=== PATIENT | female | born 1995 | race Caucasian/White ===

== ENCOUNTER 2017-01-07 18:01 | Emergency (ER) | payer MEDICAID ==
[2017-01-07 18:03] VITALS: BP 143/89; PULSE 94; RESP 15; TEMP 98.2; O2SAT 99
[2017-01-07] MEDS ORDERED: SODIUM CHLOR 0.9% 1000 ML INJ 1,000 ML IV SCH (18:29)
[2017-01-07] MEDS ORDERED: SODIUM CHLORIDE 0.9% FLUSH 10 ML FLUSH IV FLUSH PRN (18:30)
[2017-01-07] MEDS ORDERED: ONDANSETRON HCL 4 MG/2 ML VIAL IVP ONE (18:30)
--- NOTE | 2017-01-07 18:36 | PD ---
HPI Chief Complaint: GI Complaint Time Seen by Provider: 18:11 Travel History International Travel<30 days: No Contact w/Intl Traveler<30days: No Traveled to known affect area: No History of Present Illness HPI 21yo F with no PMH presents to the ED with c/o generalized abdominal pain that is intermittent for a few days along with NBNB vomiting and nausea. Pt found out she was 3 days ago. Also with 1 week of white vaginal discharge. Denies any fever, chest pain, sob, dysuria, hematuria, vaginal bleeding, focal weakness or numbness. LMP is 11/10/16 so pt should be 8weeks 2 days. PFSH Past Medical History Medical History: Denies Significant Hx ?: LMP: NOVEMBER 2016 Past Surgical History Surgical History: No Previous Surgery Social History Alcohol Use: No Tobacco Use: No Substance Use: No Allergies-Medications (Allergen,Severity, Reaction): Coded Allergies: No Known Allergies (Unverified , 01/07/17) Reported Meds & Prescriptions Reported Meds & Active Scripts Active Tylenol (Acetaminophen) 325 Mg Tab 650 Mg PO Q6H PRN Metronidazole 500 Mg Tab 500 Mg PO BID 7 Days Review of Systems Except as stated in HPI: all other systems reviewed are Neg Physical Exam Narrative GENERAL: 21yo F not in distress. SKIN: Focused skin assessment warm/dry. HEAD: Atraumatic. Normocephalic. CARDIOVASCULAR: Regular rate and rhythm. No murmur appreciated. RESPIRATORY: No accessory muscle use. Clear to auscultation. Breath sounds equal bilaterally. GASTROINTESTINAL: Abdomen soft, non-tender, nondistended. No rebound tenderness or guarding. PELVIC: MUSCULOSKELETAL: No obvious deformities. No clubbing. No cyanosis. No edema. NEUROLOGICAL: Awake and alert. No obvious cranial nerve deficits. Motor grossly within normal limits. Normal speech. PSYCHIATRIC: Appropriate mood and affect; insight and judgment normal. Data Data Last Documented VS Vital Signs Date Time Temp Pulse Resp B/P Pulse Ox O2 Delivery O2 Flow Rate FiO2 01/07/17 19:52 16 99 Room Air 01/07/17 18:03 98.2 94 143/89 Orders Ed Urine Pregnancytest Poc (01/07/17 18:11) Urinalysis - C+S If Indicated (01/07/17 18:11) Beta Hcg (Quant/Titer) (01/07/17 18:29) Complete Blood Count With Diff (01/07/17 18:29) Comprehensive Metabolic Panel (01/07/17 18:29) Lipase (01/07/17 18:29) Prothrombin Time / Inr (Pt) (01/07/17 18:29) Act Partial Throm Time (Ptt) (01/07/17 18:29) Iv Access Insert/Monitor (01/07/17 18:29) Ecg Monitoring (01/07/17 18:29) Oximetry (01/07/17 18:29) Ondansetron Inj (Zofran Inj) (01/07/17 18:30) Sodium Chlor 0.9% 1000 Ml Inj (Ns 1000 M (01/07/17 18:29) Sodium Chloride 0.9% Flush (Ns Flush) (01/07/17 18:30) Ed Poc Ultrasound (01/07/17 ) Gc And Chlamydia Pcr (01/07/17 18:39) Wet Prep Profile (01/07/17 18:39) Acetaminophen (Tylenol) (01/07/17 19:15) Metronidazole (Flagyl) (01/07/17 19:30) Type And Screen (01/07/17 19:26) Labs Laboratory Tests Test 01/07/17 01/07/17 01/07/17 01/07/17 18:25 18:40 18:45 19:35 Urine Color YELLOW Urine Turbidity CLEAR Urine pH 6.5 Urine Specific [place] 1.020 Urine Protein NEG mg/dL Urine Glucose (UA) NEG mg/dL Urine Ketones NEG mg/dL Urine Occult Blood MOD Urine Nitrite NEG Urine Bilirubin NEG Urine Urobilinogen LESS THAN 2.0 MG/DL Urine Leukocyte Esterase NEG Urine RBC 3 /hpf Urine WBC 1 /hpf Urine Squamous Epithelial 2 /hpf Cells Urine Mucus FEW /lpf Microscopic Urinalysis Comment CULT NOT INDICATED Clue Cells (Wet Prep) PRESENT Vaginal Trichomonas (Wet Prep) NONE SEEN Vaginal Yeast (Wet Prep) NONE SEEN White Blood Count 17.3 TH/MM3 Red Blood Count 3.93 MIL/MM3 Hemoglobin 11.6 GM/DL Hematocrit 35.9 % Mean Corpuscular Volume 91.3 FL Mean Corpuscular Hemoglobin 29.6 PG Mean Corpuscular Hemoglobin 32.4 % Concent Red Cell Distribution Width 12.7 % Platelet Count 245 TH/MM3 Mean Platelet Volume 9.6 FL Neutrophils (%) (Auto) 73.6 % Lymphocytes (%) (Auto) 19.7 % Monocytes (%) (Auto) 6.2 % Eosinophils (%) (Auto) 0.3 % Basophils (%) (Auto) 0.2 % Neutrophils # (Auto) 12.7 TH/MM3 Lymphocytes # (Auto) 3.4 TH/MM3 Monocytes # (Auto) 1.1 TH/MM3 Eosinophils # (Auto) 0.1 TH/MM3 Basophils # (Auto) 0.0 TH/MM3 CBC Comment DIFF FINAL Differential Comment Prothrombin Time 11.0 SEC Prothromb Time International 1.0 RATIO Ratio Activated Partial 28.9 SEC Thromboplast Time Sodium Level 137 MEQ/L Potassium Level 3.8 MEQ/L Chloride Level 104 MEQ/L Carbon Dioxide Level 24.5 MEQ/L Anion Gap 9 MEQ/L Blood Urea Nitrogen 5 MG/DL Creatinine 0.67 MG/DL Estimat Glomerular Filtration 113 ML/MIN Rate Random Glucose 84 MG/DL Calcium Level 8.7 MG/DL Total Bilirubin 0.1 MG/DL Aspartate Amino Transf 11 U/L (AST/SGOT) Alanine Aminotransferase 19 U/L (ALT/SGPT) Alkaline Phosphatase 78 U/L Total Protein 6.8 GM/DL Albumin 3.5 GM/DL Lipase 125 U/L Human Chorionic Gonadotropin, 35426 MIU/ML Quant Blood Type A POSITIVE [facility] Medical Decision Making Medical Screen Exam Complete: Yes Emergency Medical Condition: Yes Differential Diagnosis Early vs. ectopic vs. UTI vs. bacteria vaginosis vs. vaginal candidiasis vs. GC/chlamydia Narrative Course 21yo F who just found out she was here with vaginal discharge and intermittent abdominal pain. Pt has no abdominal pain on my exam. Pt given acetaminophen, zofran and NS IVF and reevaluated at bedside. States she has no abdominal pain. Pt is no longer nauseous. Tolerating PO. Pelvic exam was remarkable for thick white discharge. No CMT or adnexal tenderness. No vaginal bleeding. Labs reviewed, leukocytosis of 17.3. bHCG [id number]. UA showed moderate occult blood. No leukocyte or nitrite. Positive clue cells. Pt given metronidazole 500mg PO. Bedside US showed IUP with +FHR. Blood type A+. Return precautions given. Procedures Procedure Narrative Emergency Department Pelvic ultrasound was performed with patient consent. The curvilinear probe was used in the transverse and sagittal views within the suprapubic region revealing single intrauterine . heart rate was 160bpm. Diagnosis Primary Impression: Bacterial vaginosis Patient Instructions: General Instructions Departure Forms: Tests/Procedures Additional Instructions: Please follow up with an OBGYN in 1-2 days. Return to the ED if symptoms worsen. Med/Other Pt SpecificInfo: Prescription(s) given Scripts Acetaminophen (Tylenol)325 Mg Hkg298 Mg PO Q6H PRN (PAIN SCALE 1 TO 4) #20 TAB Ref 0 Prov:Beth Avila DO 01/07/17 Metronidazole 500 Mg [id number] Mg PO BID 7 Days Ref 0 Prov:Beth Avila DO 01/07/17 Beth Avila DO Jan 07, 2017 18:36
[2017-01-07 18:41] LABS: BLOOD, URINE MOD (NEG); COMMENT (UR) CULT NOT INDICATED; CULTURE IF INDICATED CULT NOT INDICATED; GLUCOSE,URINE NEG (NEG); KETONE, URINE NEG (NEG); MUCUS URINE FEW /lpf (OCC); NITRITE,URINE NEG (NEG); PH, URINE 6.5 (5.0-8.5); SQUAMOUS EPITHELIAL CELL URINE 2 /hpf (0-5); URINE COLOR YELLOW (YELLW/STRAW)
[2017-01-07 19:11] LABS: AUTOMATED NEUTROPHIL # 12.7 TH/MM3 (1.8-7.7); BASOPHIL % 0.2 % (0.0-2.0); EOSINOPHIL # 0.1 TH/MM3 (0-0.4); EOSINOPHIL % 0.3 % (0.0-4.0); HEMATOCRIT 35.9 % (35.0-46.0); HEMO FLAGS DIFF FINAL; LYMPH % 19.7 % (9.0-44.0); LYMPHOCYTE # 3.4 TH/MM3 (1.0-4.8); MEAN CELL VOLUME 91.3 FL (80.0-100.0); MEAN CORPUSCULAR HEMOGLOBIN 29.6 PG (27.0-34.0); MEAN CORPUSCULAR HGB CONC 32.4 % (32.0-36.0); MONO % 6.2 % (0.0-8.0); NEUT % 73.6 % (16.0-70.0); PLATELET COUNT 245 TH/MM3 (150-450); RED BLOOD COUNT 3.93 MIL/MM3 (4.00-5.30); RED CELL DISTRIBUTION WIDTH 12.7 % (11.6-17.2); WHITE BLOOD COUNT 17.3 TH/MM3 (4.0-11.0)
[2017-01-07] MEDS ORDERED: ACETAMINOPHEN 325 MG TAB PO ONE (19:15)
[2017-01-07 19:23] LABS: APTT (PATIENT) 28.9 SEC (24.3-30.1)
[2017-01-07] MEDS ORDERED: metroNIDAZOLE 500 MG TAB PO ONE (19:30)
[2017-01-07 19:42] LABS: ALT (GPT) 19 U/L (9-42); ANION GAP 9 MEQ/L (5-15); AST (GOT) 11 U/L (16-38); BICARBONATE 24.5 MEQ/L (21.0-32.0); BLOOD UREA NITROGEN 5 MG/DL (7-18); CHLORIDE 104 MEQ/L (98-107); GLOMERULAR FILTRATION RATE 113 ML/MIN (>89); POTASSIUM 3.8 MEQ/L (3.5-5.1); SODIUM (NA) 137 MEQ/L (136-145)
[2017-01-07 19:52] VITALS: RESP 16; O2SAT 99
[2017-01-07 19:59] LABS: ALKALINE PHOSPHATASE 78 U/L (45-117); BETA HCG QUANT 78362 MIU/ML (0-5); TOTAL BILIRUBIN ADULT 0.1 MG/DL (0.2-1.0)
[2017-01-07] MEDS ORDERED: METR500T10 PO (20:08)
[2017-01-07] MEDS ORDERED: TYLE325T PO (20:08)
[2017-01-07 21:59] LABS: CHLAMYDIA PCR NOT DETECTED (NOT DETECT); NEISSERIA PCR NOT DETECTED (NOT DETECT)
== END 2017-01-07 21:06 | disposition home or self-care (01) ==
LOC: NEPD 18:01
DX: O23.599 Infection of other part of genital tract in pregnancy, unspecified trimester (principal); N76.0 Acute vaginitis; B96.89 Other specified bacterial agents as the cause of diseases classified elsewhere; Z3A.00 Weeks of gestation of pregnancy not specified
CPT/HCPCS: 80053; 81001; 83690; 84702; 84703; 85025; 85610; 85730; 86850; 86900; 86901; 87210; 87491; 87591; 96361; 96374; 99285; J2405; J7030

== ENCOUNTER 2017-04-16 09:20 | Emergency (ER) | payer MEDICAID ==
[~2017-04-16] VITALS: Ht 162.6 cm; Wt 95.0 kg
[~2017-04-16 09:20] MED LIST: BUTO1CRE PV; METR500T10 PO; PREN1CAP7 PO
[2017-04-16 09:23] VITALS: BP 130/85; PULSE 102; RESP 20; TEMP 98; O2SAT 99
--- NOTE | 2017-04-16 09:36 | PD ---
HPI Chief Complaint: Pain: Acute or Chronic Time Seen by Provider: 09:35 Travel History International Travel<30 days: No Contact w/Intl Traveler<30days: No Traveled to known affect area: No History of Present Illness HPI 22-year-old female, approximately 5 months , presents emergency Department with complaint of left arm pain that started yesterday afternoon. Denies injury. Says she remembers moving a mattress the other day. Pain is specifically to the left upper trapezius muscle area and to the ulnar aspect of the elbow. Says the pain radiates up and down her arm. Reports numbness and tingling to the lower aspect of her arm. Denies loss of sensation or decreased range of motion to the affected extremity. Denies chest pain, shortness of breath. Denies abdominal pain, abdominal cramping, vaginal bleeding. Denies fever, vomiting. Has not taken any medications or tried any treatments to alleviate her symptoms. Symptoms are mild in severity. Pain is aggravated when she tries to sleep. No known relieving factors. Has no other medical complaints. No known allergies. No other modifying factors or associated signs and symptoms. PFSH Past Medical History Medical History: Denies Significant Hx ?: LMP: 11/10/16 Past Surgical History Surgical History: No Previous Surgery Social History Alcohol Use: No Tobacco Use: No Substance Use: No Allergies-Medications (Allergen,Severity, Reaction): Coded Allergies: No Known Allergies (Unverified , 04/16/17) Reported Meds & Prescriptions Reported Meds & Active Scripts Active No Active Prescriptions or Reported Medications Review of Systems Except as stated in HPI: all other systems reviewed are Neg Physical Exam Narrative GENERAL: Well-nourished, well-developed female patient, in no acute distress; afebrile, nontoxic-appearing SKIN: Warm and dry. HEAD: Atraumatic. Normocephalic. EYES: Pupils equal and round. No scleral icterus. No injection or drainage. ENT: Mucosa pink and moist. Airway patent. NECK: Trachea midline. CARDIOVASCULAR: Regular rate and rhythm. No murmur appreciated. RESPIRATORY: No accessory muscle use. Breath sounds clear and equal bilaterally. No retractions or tachypnea. GASTROINTESTINAL: Rounded. 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 Reproducible tenderness to the left upper trapezius muscle and muscle feels tense. Full range of motion of the left shoulder. No obvious deformities. No clubbing. No cyanosis. No edema. NEUROLOGICAL: Awake and alert. Oriented 3. No obvious cranial nerve deficits. Motor grossly within normal limits. Normal speech. PSYCHIATRIC: Appropriate mood and affect; insight and judgment normal. Data Data Last Documented VS Vital Signs Date Time Temp Pulse Resp B/P (MAP) Pulse Ox O2 Delivery O2 Flow Rate FiO2 04/16/17 09:43 04/16/17 09:41 90 04/16/17 09:23 98.0 20 99 Room Air Orders Orders Acetaminophen (Tylenol) (04/16/17 09:45) MDM Medical Decision Making Medical Screen Exam Complete: Yes Emergency Medical Condition: Yes Medical Record Reviewed: Yes Differential Diagnosis Ulnar Nerve entrapment, muscle strain, muscle spasm, arm pain or arm strain or muscle strain. Narrative Course 22-year-old female with left arm pain. Suspecting ulnar nerve entrapment, arm strain, muscle strain. Patient is approximately 5 months . Denies abdominal pain, cramping, vaginal bleeding. Denies injury. May have pulled arm while moving a mattress the other day. Left upper to me supplemented with 2 + radial pulse and sensory intact with full strength and range of motion. Tylenol administered in the ER. Instructed patient to continue to take Tylenol as needed for pain. Instructed patient to follow up with primary care provider. Patient verbalizes understanding and agreement with treatment plan. Patient is medically cleared and stable for discharge. Discussed reasons to return to the emergency department. Patient agrees with treatment plan. The patients vital signs are stable and the patient is stable for outpatient follow- up and treatment. Patient discharged home, stable and in no acute distress. Diagnosis Primary Impression: Left arm pain Referrals: Primary Care Physician Patient Instructions: Arm Pain (ED), General Instructions Additional Instructions: Tylenol as directed and as needed for pain Avoid aggravating activity Increase activity as tolerated Follow-up with primary care provider Return to the emergency department immediately if worse worsening of symptoms Med/Other Pt SpecificInfo: No Meds Exist/No RX given Scripts No Active Prescriptions or Reported Meds Disposition: DISCHARGE HOME Condition: Stable Maya GaldamezP Apr 16, 2017 09:36
[2017-04-16 09:41] VITALS: PULSE 90
[2017-04-16] MEDS ORDERED: ACETAMINOPHEN 325 MG TAB PO ONE (09:45)
[2017-04-26] MEDS ORDERED: METR500T10 PO (10:58)
[2017-04-26] MEDS ORDERED: PREN1CAP7 PO (10:58)
== END 2017-04-16 09:52 | disposition home or self-care (01) ==
LOC: NEPD 09:20
DX: M79.602 Pain in left arm (principal); Z33.1 Pregnant state, incidental; Z3A.20 20 weeks gestation of pregnancy
CPT/HCPCS: 99282

== ENCOUNTER → 2017-05-18 | Outpatient (CLI) | payer MEDICAID ==
[~2017-05-18] MED LIST changes: -BUTO1CRE PV
== END ==
LOC: HPND 09:01
PROVIDERS: ATTEND Obstetrics & Gynecology
DX: O35.0XX0 Maternal care for (suspected) central nervous system malformation in fetus, not applicable or unspecified (principal); O99.212 Obesity complicating pregnancy, second trimester; E66.9 Obesity, unspecified; Z68.34 Body mass index [BMI] 34.0-34.9, adult
CPT/HCPCS: 76811

== ENCOUNTER → 2017-07-11 | Outpatient (CLI) | payer MEDICAID ==
[~2017-07-11] MED LIST changes: +AMOX500C PO; -METR500T10 PO
== END ==
LOC: HPND 08:02
PROVIDERS: ATTEND Obstetrics & Gynecology
DX: O35.1XX0 Maternal care for (suspected) chromosomal abnormality in fetus, not applicable or unspecified (principal); O99.213 Obesity complicating pregnancy, third trimester
CPT/HCPCS: 76816

== ENCOUNTER 2017-08-23 21:26 | Inpatient (IN) | payer MEDICAID ==
[~2017-08-23] VITALS: Ht 165.1 cm; Wt 118.2 kg
[~2017-08-23 21:26] MED LIST changes: -AMOX500C PO
[2017-08-23] MEDS ORDERED: LACTATED RINGER'S 1000 ML INJ 1,000 ML IV PRN (22:08)
--- NOTE | 2017-08-23 22:08 | HHI.HP ---
HPI Chief Complaint IOL Date Seen: Aug 23, 2017 Time Seen: 22:00 Travel History International Travel<30 Days: No Contact w/Intl Traveler<30Days: No Known Affected Area: No History of Present Illness HPI Ms. Mcrae is a 22-year-old G1 at 40 weeks and 6 days presenting for induction of labor. [facility] by [facility]. Patient states that she has not had a gush of fluid, is not feeling contractions, has not noticed any changed in the amount of baby movements (roughly every hour or so), no vaginal bleeding. Patient is GBS positive and reports receiving antibiotics for this at 36-37 weeks of . Otherwise she has had no complications during this . She failed her 1 hour glucose tolerance test but passed a 3 hour test. 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 Obstetric History Obstetric History G1 No complications during GBS positive Followed by [facility] In office ultrasound at 27 weeks was questionable for choroid plexus cyst, OB diagnostic ultrasounds following that were negative as well as karyotype for any trisomies were also negative Past Surgical History Surgical History: No Previous Surgery Family History Family History: Negative Social History Narrative Social History Lives at home with mom and sister No pets No tobacco alcohol or drug use Allergies-Medications (Allergen,Severity, Reaction): Coded Allergies: No Known Allergies (Unverified Adverse Reaction, Unknown, 08/18/17) Home Meds Active Scripts W/O Vit A W/ Fe Fumar (Citranatal Treadwell) 27-1-260 Mg Cap, 1 CAP PO DAILY for Nutritional Supplement, #30 CAP 3 Refills Prov:Verna Bauman CNM [place] 04/26/17 Review of Systems Except as stated in HPI: all other systems reviewed are Neg Physical Exam Narrative GENERAL: Well-nourished, well-developed patient. SKIN: Warm and dry. HEAD: Normocephalic and atraumatic. EYES: No scleral icterus. No injection or drainage. ENT: No nasal drainage noted. Mucous membranes pink. Airway patent. NECK: Supple, trachea midline. No JVD. CARDIOVASCULAR: Regular rate and rhythm without murmurs, gallops, or rubs. RESPIRATORY: Breath sounds equal bilaterally. No accessory muscle use. ABDOMEN/GI: Abdomen soft, non-tender, bowel sounds present, no rebound, no guarding Gravid to 40 weeks size GENITOURINARY: External Genitalia: intact and normal in appearance Cervix: Posterior Dilatation: Closed Effacement: Thick Station: -3 Presentation: Vertex Membranes: Intact Uterine Contractions: No significant contractions on FHT FHT's: Category: 1 Baseline: 145 Reactive: Yes Variability: Moderate Decels: No Persistent decelerations EXTREMITIES: No cyanosis or edema. BACK: Nontender without obvious deformity. No CVA tenderness. NEUROLOGICAL: Awake and alert. Motor and sensory grossly within normal limits. Five out of 5 muscle strength in all muscle groups. Normal speech. Caprini VTE Risk Assessment Caprini VTE Risk Assessment: No/Low Risk (score <= 1) Assessment/Plan Assessment and Plan 22-year-old G1 at 40 weeks and 6 days presenting for induction of labor. GBS positive. Category 1 tracing IOL -Category 1 tracing -Cervix is closed, thick and soft -Starting Cytotec 25 g every 4 hours -With GBS positive status will start penicillin once patient is an labor -Otherwise routine antepartum care Discussed with Dr. Johnson and Ward Young MD R1 Aug 23, 2017 22:08
[2017-08-23] MEDS ORDERED: MISOPROSTOL 25 MCG SUPP VAGINAL ONE (22:15)
[2017-08-23] MEDS ORDERED: CITRIC ACID-SODIUM CITRATE LIQ 30 ML UDC PO SCH (22:15)
[2017-08-23] MEDS ORDERED: SODIUM CHLORIDE 0.9% FLUSH 10 ML FLUSH IV FLUSH PRN (22:15)
[2017-08-23] MEDS ORDERED: LIDOCAINE HCL 1% 50 ML VIAL INFIL PRN (22:15)
[2017-08-23] MEDS ORDERED: LIDOCAINE HCL 1% 50 ML VIAL I-DERMAL PRN (22:15)
[2017-08-23] MEDS ORDERED: SODIUM CHLORID 0.9% 500 ML INJ 500 ML IV PRN (22:15)
[2017-08-23] MEDS ORDERED: OXYTOCIN 30 UNITS-500ML PREMIX 500 ML IV ONE (22:15)
[2017-08-23] MEDS ORDERED: MINERAL OIL 10 ML VIAL TOPICAL PRN (22:15)
[2017-08-23] MEDS ORDERED: ONDANSETRON HCL 4 MG/2 ML VIAL IV PUSH PRN (22:15)
[2017-08-23 22:22] VITALS: PULSE 110
[2017-08-23] MEDS ORDERED: SODIUM CHLOR 0.9% 1000 ML INJ 1,000 ML IV PRN (22:28)
[2017-08-23 22:30] VITALS: BP 135/83; PULSE 95
[2017-08-23 22:45] VITALS: RESP 18; TEMP 98
[2017-08-23] MEDS ORDERED: MISOPROSTOL 25 MCG TAB VAGINAL ONE (22:45)
[2017-08-23 23:05] LABS: AUTOMATED NEUTROPHIL # 9.4 TH/MM3 (1.8-7.7); BASOPHIL % 0.1 % (0.0-2.0); EOSINOPHIL # 0.1 TH/MM3 (0-0.4); EOSINOPHIL % 0.6 % (0.0-4.0); HEMATOCRIT 38.8 % (35.0-46.0); HEMOGLOBIN 13.3 GM/DL (11.6-15.3); LYMPH % 15.4 % (9.0-44.0); LYMPHOCYTE # 1.9 TH/MM3 (1.0-4.8); MEAN CELL VOLUME 87.3 FL (80.0-100.0); MEAN CORPUSCULAR HEMOGLOBIN 29.9 PG (27.0-34.0); MEAN CORPUSCULAR HGB CONC 34.2 % (32.0-36.0); MEAN PLATELET VOLUME 9.7 FL (7.0-11.0); MONO % 8.1 % (0.0-8.0); NEUT % 75.8 % (16.0-70.0); PLATELET COUNT 234 TH/MM3 (150-450); RED BLOOD COUNT 4.45 MIL/MM3 (4.00-5.30); RED CELL DISTRIBUTION WIDTH 15.2 % (11.6-17.2); WHITE BLOOD COUNT 12.4 TH/MM3 (4.0-11.0)
[2017-08-23 23:26] LABS: BACTERIA, URINE RARE /hpf; BILIRUBIN, URINE NEG (NEG); BLOOD, URINE NEG (NEG); GLUCOSE,URINE NEG (NEG); KETONE, URINE NEG (NEG); MUCUS URINE FEW /lpf (OCC); NITRITE,URINE NEG (NEG); SQUAMOUS EPITHELIAL CELL URINE 12 /hpf (0-5); URINE COLOR YELLOW (YELLW/STRAW); URINE LEUKOCYTE ESTERASE LARGE (NEG)
[2017-08-24] VITALS (42 sets, daily range): BP systolic 102–144; BP diastolic 55–90; PULSE 59–92; RESP 18–20; TEMP 97.2–98.7; O2SAT 95–100
[2017-08-24] MEDS ORDERED: MISOPROSTOL 25 MCG TAB VAGINAL SCH (02:15)
[2017-08-24] MEDS ORDERED: MISOPROSTOL 25 MCG SUPP VAGINAL PRN (02:15)
[2017-08-24] MEDS ORDERED: TERBUTALINE INJ 1 MG/ML AMP ONE (06:03)
[2017-08-24] MEDS ORDERED: SODIUM CHLORIDE 0.9% FLUSH 10 ML FLUSH IV FLUSH SCH (09:00)
[2017-08-24] MEDS ORDERED: LIDOCAINE HCL 1% PF 5 ML SYRINGE OTHER ONE (12:00)
[2017-08-24] MEDS ORDERED: OXYTOCIN 10 UNIT/ML AMP IV ONE (12:00)
[2017-08-24] MEDS ORDERED: ePHEDrine/NS 25 MG/5 ML SYRINGE IV ONE (12:00)
[2017-08-24] MEDS ORDERED: ONDANSETRON HCL 4 MG/2 ML VIAL IV PUSH ONE (12:00)
[2017-08-24] MEDS ORDERED: LACTATED RINGER'S 1000 ML INJ 1,000 ML IV ONE ×2 (12:00→13:37)
[2017-08-24] MEDS ORDERED: PHENYLEPH/NS 1000 MCG/10 ML SYR IV ONE (12:00)
[2017-08-24] MEDS ORDERED: PROPOFOL 200 MG/20 ML AMP IV ONE (12:00)
[2017-08-24] MEDS ORDERED: OXYTOCIN 30 UNITS/NS 500ML PREMIX IV PRN (12:00)
[2017-08-24] MEDS ORDERED: ceFAZolin INJ 1,000 MG VIAL IV ONE (12:00)
[2017-08-24] MEDS ORDERED: DEXAMETHASONE SOD PHOS 4 MG/ML VIAL IV ONE (12:00)
[2017-08-24] MEDS ORDERED: DINOPROSTONE 10 MG VAG INSERT VAGINAL ONE (12:45)
--- NOTE | 2017-08-24 12:56 | PD.LABORPN ---
Subjective Subjective Patient is primiparous patient 41 weeks and induced for postdates, she has cervix that is fingertip the external os closed at the internal os very posterior high the pelvis. Patient presented the last evening and presented 10 PM. She received Cytotec per vagina 25 g. She had reactive strip prior to placing the Cytotec however nylon after that began having late decelerations. Intrauterine resuscitation was done. And patient strip improved. She received a second dose of Cytotec approximately 3 AM and had a string of repetitive late decelerations after that as well. However this resolved as well and since that time her strip has had sporadic variables and occasional late decelerations along with reactivity with good accelerations and always maintaining moderate variability however after review of her hospital stay and the monitor strip and was apparent to me that we did not assess the fetus well enough to know if it would tolerate labor or could proceed with an induction of labor. It was felt that time that we should perform a contraction stress test to evaluate the baby's tolerance of the stress of contractions and labor, Pitocin was started IV contractions were generated she had 3 contractions in a 20 minute window on the monitor strip and had no late decelerations during that time, therefore felt the patient had a negative [employer] and could proceed with further cervical ripening as the patient wanted to continue to try and labor. I discussed with her earlier possibility of the fetus not tolerating labor and that with a large baby and a very poor cervix and a questionable strip that it might be best to do a section for delivery and this was offered to the patient today she did not want to proceed in that direction at this time I felt like it wasn't mandatory just a treatment option. With a negative [employer] and handed we will proceed with cervical ripening with Cervidil in this setting. I would like them to remove the prostaglandin if possible in the face of worsening strip Cervidil was used Objective Vital Signs Vital Signs Date Time Temp Pulse Resp B/P (MAP) Pulse Ox O2 Delivery O2 Flow Rate FiO2 08/24/17 12:36 83 109/64 (79) 08/24/17 12:12 97.6 08/24/17 12:09 80 111/61 (78) 08/24/17 12:08 18 08/24/17 10:33 59 133/80 (97) 08/24/17 10:32 18 08/24/17 10:05 73 08/24/17 10:00 78 1/17/18 09:55 70 08/24/17 09:50 77 08/24/17 09:45 84 08/24/17 09:40 71 08/24/17 09:35 76 08/24/17 09:30 69 08/24/17 09:29 64 116/59 (78) 08/24/17 09:28 18 08/24/17 08:15 98.6 92 18 106/68 (81) 08/24/17 07:05 75 121/55 (77) 08/24/17 07:04 18 08/24/17 06:15 79 08/24/17 06:10 71 08/24/17 06:05 76 08/24/17 06:00 63 08/24/17 06:00 97.8 18 08/24/17 05:55 71 08/24/17 05:54 73 132/65 (87) Objective Pelvic Exam: Cervix: [Closed at the internal os-] Dilatation: [Closed at the internal os posterior thick-] Effacement: [Thick-] Station: [-] Very posterior and high the pelvis Presentation: [vtx-] Membranes: [intact ] Uterine Contractions: [Irregular-] FHT's: Category: [1, at times a cat II then returning to cat I-] Baseline: [-145] Reactive: [-R] Variability: [-mod] Decels: [-variables and occ late decel] Weeks Gestation: 41 Assessment/Plan Assessment and Plan 41 week induction, unfavorable cervix, poorly with a negative [employer] will proceed with further cervical ripening with Cervidil with the fetus shows signs of intolerance with contractions and decelerations that are associated then will stop the process and proceed with section Michael Silva II, MD Aug 24, 2017 12:56
[2017-08-24] MEDS ORDERED: MORPHINE SULFATE PF 5 MG/10 ML VIAL ONE (14:00)
[2017-08-24] MEDS ORDERED: LACTATED RINGER'S 1000 ML INJ 1,000 ML IV SCH ×2 (14:07→21:02)
[2017-08-24] MEDS ORDERED: ceFAZolin 2 GM PREMIX 50 ML IV SCH (14:45)
[2017-08-24] MEDS ORDERED: CITRIC ACID-SODIUM CITRATE LIQ 30 ML UDC PO SCH (15:15)
[2017-08-24] MEDS ORDERED: ONDANSETRON HCL 4 MG/2 ML VIAL IV PUSH PRN (16:15)
[2017-08-24] MEDS ORDERED: oxyCODONE/ACETAMINOPHEN 5 MG/325 MG TAB PO PRN (16:15)
[2017-08-24] MEDS ORDERED: KETOROLAC TROMETHAMINE 60 MG/2 ML (IM) VIAL IM PRN ×2 (16:15)
[2017-08-24] MEDS ORDERED: OXYTOCIN 30 UNITS-500ML PREMIX 500 ML IV ONE (16:15)
[2017-08-24] MEDS ORDERED: SODIUM CHLORIDE 0.9% FLUSH 10 ML FLUSH IV FLUSH PRN (16:15)
[2017-08-24] MEDS ORDERED: EPIDURAL-DIPHENHYDRAMINE HCL 50 MG/ML VIAL IV PUSH PRN (18:15)
[2017-08-24] MEDS ORDERED: EPIDURAL-NO SYSTEMIC NARCOTICS PRN (18:15)
[2017-08-24] MEDS ORDERED: EPIDURAL-DO NOT ADMINISTER ANTICOAGULANTS PRN (18:15)
[2017-08-24] MEDS ORDERED: EPIDURAL-DIPHENHYDRAMINE HCL 50 MG CAP PO PRN (18:15)
[2017-08-24] MEDS ORDERED: EPIDURAL-NALOXONE HCL 0.4 MG/ML AMP IV PUSH PRN (18:15)
[2017-08-24] MEDS ORDERED: ZOLPIDEM TARTRATE 5 MG TAB PO PRN (21:00)
[2017-08-24] MEDS: ceFAZolin 2 GM PREMIX 50 ML IV SCH (21:49)
[2017-08-24] MEDS: SODIUM CHLORIDE 0.9% FLUSH 10 ML FLUSH IV FLUSH SCH (22:07)
[2017-08-25] VITALS (14 sets, daily range): BP systolic 72–140; BP diastolic 29–76; PULSE 85–105; RESP 9–20; TEMP 97.9–98.6; O2SAT 99
[2017-08-25] MEDS ORDERED: OXYTOCIN 30 UNITS-500ML PREMIX 500 ML IV PRN (02:15)
[2017-08-25] MEDS: ceFAZolin 2 GM PREMIX 50 ML IV SCH (05:38)
[2017-08-25 05:53] LABS: AUTOMATED NEUTROPHIL # 11.9 TH/MM3 (1.8-7.7); BASOPHIL % 0.1 % (0.0-2.0); HEMATOCRIT 30.1 % (35.0-46.0); HEMOGLOBIN 9.7 GM/DL (11.6-15.3); LYMPH % 11.7 % (9.0-44.0); LYMPHOCYTE # 1.7 TH/MM3 (1.0-4.8); MEAN CELL VOLUME 88.2 FL (80.0-100.0); MEAN CORPUSCULAR HEMOGLOBIN 28.4 PG (27.0-34.0); MEAN CORPUSCULAR HGB CONC 32.2 % (32.0-36.0); MEAN PLATELET VOLUME 9.8 FL (7.0-11.0); MONO % 7.7 % (0.0-8.0); MONOCYTE # 1.1 TH/MM3 (0-0.9); NEUT % 80.5 % (16.0-70.0); PLATELET COUNT 189 TH/MM3 (150-450); RED BLOOD COUNT 3.41 MIL/MM3 (4.00-5.30); RED CELL DISTRIBUTION WIDTH 15.1 % (11.6-17.2); WHITE BLOOD COUNT 14.7 TH/MM3 (4.0-11.0)
--- NOTE | 2017-08-25 07:54 | HHI.OB ---
Subjective Post Operative Day: 1 Remarks Ms. Mcrae is a 22 yo who is POD 1 from CS 08/24 for inability to tolerate labor. Afebrile with mild BP elevations overnight (SBP 141/76, 144/80). Patient reports that she is doing well at this time; she reports some lower abdominal pain when she moves but not at rest. Patient has continued vaginal bleeding. Patient has been ambulating well. Patient recently had her catheter removed; she has not yet urinated spontaneously. Patient passing gas normally. No chest pain, shortness of breath, or leg swelling. Patient plans to breast feed but has not yet started doing so. Objective Vitals/I&O Vital Signs Date Time Temp Pulse Resp B/P (MAP) Pulse Ox O2 Delivery O2 Flow Rate FiO2 08/25/17 04:10 98.6 102 18 140/68 (92) 99 08/24/17 23:52 98.7 08/24/17 23:52 88 18 144/80 (101) 95 08/24/17 20:10 98.3 08/24/17 20:10 97 08/24/17 20:10 83 18 136/69 (91) 08/24/17 17:45 97.8 78 20 141/76 (97) 08/24/17 17:07 97.5 08/24/17 17:03 81 18 112/77 (89) 08/24/17 17:03 99 08/24/17 16:46 75 18 120/71 (87) 100 08/24/17 16:46 97.4 08/24/17 16:33 100 08/24/17 16:33 71 18 108/55 (72) 08/24/17 16:30 99 08/24/17 16:19 102/57 (72) 08/24/17 16:19 68 18 08/24/17 16:15 99 08/24/17 16:00 76 08/24/17 16:00 97.2 18 08/24/17 16:00 114/56 (75) 08/24/17 16:00 97.2 18 08/24/17 16:00 76 08/24/17 16:00 114/56 (75) 08/24/17 13:33 98.2 18 08/24/17 13:32 90 125/75 (92) 1/17/18 12:45 18 08/24/17 12:36 83 109/64 (79) 08/24/17 12:12 97.6 08/24/17 12:09 80 111/61 (78) 08/24/17 12:08 18 08/24/17 10:33 59 133/80 (97) 08/24/17 10:32 18 08/24/17 10:05 73 08/24/17 10:00 78 08/24/17 09:55 70 08/24/17 09:50 77 08/24/17 09:45 84 08/24/17 09:40 71 08/24/17 09:35 76 08/24/17 09:30 69 08/24/17 09:29 64 116/59 (78) 08/24/17 09:28 18 08/24/17 08:15 98.6 92 18 106/68 (81) Result Diagram: 08/25/17 0500 Objective Remarks GENERAL: Well-nourished, well-developed patient. CARDIOVASCULAR: Regular rate and rhythm without murmurs. Normal perfusion RESPIRATORY: CTAB; normal rate ABDOMEN/GI: Abdomen soft, non-tender, bowel sounds present. Incision: Left incision covered; no leakage associated with incision dressing. Fundus: Firm, non-tender at umbilicus. GENITOURINARY: Light to moderate bleeding. EXTREMITIES: No cyanosis or edema, non-tender, without signs of DVT. Medications and IVs Current Medications Medications (Trade) Dose Ordered Sig/Laila Route Start Time Stop Time Status Last Admin Lactated Ringer's 1,000 ml @ 100 mls/hr Q10H IV 08/24/17 21:02 08/25/17 17:01 08/24/17 21:50 Oxytocin 500 ml @ 100 mls/hr UNSCH X1 PRN IV 08/25/17 02:15 08/26/17 02:14 (NS Flush) 2 ml BID IV FLUSH 08/24/17 21:00 08/24/17 22:07 (NS Flush) 2 ml UNSCH PRN IV FLUSH 08/24/17 16:15 (Motrin) 600 mg Q6H PRN PO 08/24/17 16:15 (Toradol Inj) 30 mg Q6H PRN IM 08/24/17 16:15 08/25/17 16:14 (Percocet 5-325 Mg) 1 tab Q4H PRN PO 08/24/17 16:15 (Percocet 5-325 Mg) 2 tab Q4H PRN PO 08/24/17 16:15 Cefazolin Sodium/ Dextrose 50 ml @ 100 mls/hr Q8H IV 08/24/17 22:00 08/25/17 16:00 08/25/17 05:38 (Anita-Colace) 2 tab Q12H PRN PO 08/24/17 16:15 (Ambien) 5 mg HS PRN PO 08/24/17 21:00 (M-M-R Ii Inj) 0.5 ml ONCE ONCE SQ 08/25/17 16:00 08/25/17 16:01 (Boostrix Inj) 0.5 ml ONCE ONCE IM 08/25/17 16:00 08/25/17 16:01 08/24/17 22:05 (Zofran Inj) 4 mg Q6H PRN IV PUSH 08/24/17 16:15 Miscellaneous Information NO SYSTEMIC NARCOTICS TO BE GIVEN FO... UNSCH PRN .XX 08/24/17 18:15 08/25/17 18:14 (Narcan Inj) 0.4 mg UNSCH PRN IV PUSH 08/24/17 18:15 08/25/17 18:14 (Benadryl Inj) 25 mg Q6H PRN IV PUSH 08/24/17 18:15 08/25/17 18:14 08/24/17 21:52 (Benadryl) 50 mg Q6H PRN PO 08/24/17 18:15 08/25/17 18:14 Miscellaneous Information ALL NURSING DEPARTMENTS UNSCH PRN .XX 08/24/17 18:15 08/25/17 18:14 Assessment/Plan Problem List: (1) care following delivery ICD Codes: Z39.2 - Encounter for routine follow-up Assessment and Plan Ms. Mcrae is a 22 yo who is POD 1 from CS 08/24 for inability to tolerate labor. -Continue post- care -Continue to monitor VS, vaginal bleeding -Encourage ambulation -Percocet/Motrin for pain control -Anita-colace for stool softening -Continue Ancef 2gm q8hrs until 24 hrs post-op -Monitor urination after tejada removal this morning; intervene per nursing protocol as needed - guidance requested Anemia Impression: Hgb 13.3 on admission -> 9.7 post-op -Will start ferrous sulfate supplementation BID to be continued for several months post- Román Gonzalez MD, R3 Aug 25, 2017 07:54
[2017-08-25] MEDS: FERROUS SULFATE 325 MG (65 MG ELEMENTAL IRON) TAB PO SCH ×2 (08:15→19:54)
[2017-08-25] MEDS: oxyCODONE/ACETAMINOPHEN 5 MG/325 MG TAB PO PRN ×2 (08:31→19:54)
[2017-08-25] MEDS: IBUPROFEN 600 MG TAB PO PRN ×2 (08:31→19:54)
[2017-08-25] MEDS: DOCUSATE SODIUM 50 MG/SENNA 8.6 MG TAB PO PRN (08:32)
[2017-08-25] MEDS: SODIUM CHLORIDE 0.9% FLUSH 10 ML FLUSH IV FLUSH SCH ×2 (09:00→21:00)
[2017-08-25] MEDS ORDERED: SODIUM CHLORID 0.9% 500 ML INJ 500 ML IV ONE (09:15)
--- NOTE | 2017-08-25 11:03 | MP ---
cc: LILY SILVA MD DATE OF SURGERY 08/23/2017 PREOPERATIVE DIAGNOSIS Post dates , primiparous with failed induction and intolerance to labor. POSTOPERATIVE DIAGNOSIS Post dates , primiparous with failed induction and intolerance to labor, macrosomia and polyhydramnios. PROCEDURE PERFORMED Primary low transverse section. SURGEON Lily Silva MD P[employer] SUPERVISOR [employer] ANESTHESIA Spinal PREOPERATIVE NOTE The patient is a 22-year-old black female G1, P0 at 41 weeks being induced for same for post dates. Cervix was unfavorable, treated with Cytotec for cervical ripening and at the same time with uterine activity, we saw repetitive late decelerations in the heart rate. This resolved, but over time after another dose of Cytotec, the same thing reoccurred with more repetitive late decelerations. These episodes of decelerations would resolve, but anytime the patient had a significant number of contractions, she would have either a large variable or late deceleration, so the baby was not tolerating labor well. The patient was given the option for . She did not want to do that for quite a few hours but then acquiesced and decided to go ahead and have a for delivery due to intolerance and lack of progress in the cervical ripening process. PROCEDURE The patient was taken to the operating room, placed in the supine position on the operating table. Adequate spinal anesthesia was given. She was prepped and draped for abdominal surgery. A Pfannenstiel incision was made in the lower abdomen and carried down to the fascia sharply. The fascia was taken off the rectus muscle and the rectus split in the midline. This incision extended superiorly and inferiorly. The bladder blade was placed in the lower uterine incision. The visceral peritoneum reflected off the lower uterine segment. The bladder was placed on the bladder blade. Transverse hysterotomy was made and distended bluntly bilaterally. At that time, a large amount of clear amniotic fluid was noted qualifying for polyhydramnios. The was a male delivered at 1439, 's 8 and 9, weight 4010 grams consistent with macrosomia. Cord blood obtained. Placenta manually extracted. Uterus exteriorized and hysterotomy closed in running layer of chromic followed by imbricating suture of same. Hemostasis was achieved with several stick ties. The bladder was reapproximated using 2-0 Vicryl in a running suture. The uterus elevated and blood suctioned from the cul-de-sac and gutters. The uterus replaced into the peritoneal cavity. The ovaries and tubes noted to be within normal limits. The parietal peritoneum closed in a running layer of 2-0 Vicryl. Muscle reapproximated with stick ties of chromic. The fascia closed in a running layer of 0-Vicryl. Subcutaneous tissues closed with a running 3-0 plain suture and then skin closed with 3-0 Monocryl subcuticular stitch. Then 7-day silver dressing was applied to the incision. The patient taken to the recovery room in stable condition. The estimated blood loss was 500 cc. There were no other complications. Sponge and instrument counts correct x2. The patient did well in recovery. MD FILOMENA Harper/MARIBEL /4:55 PM /10:48 AM
[2017-08-25] MEDS ORDERED: SODIUM CHLOR 0.9% 1000 ML INJ 1,000 ML IV ONE (13:30)
[2017-08-25 15:53] LABS: HEMATOCRIT 28.5 % (35.0-46.0); HEMOGLOBIN 9.4 GM/DL (11.6-15.3)
[2017-08-25] MEDS ORDERED: MEASLES, MUMPS, RUBELLA VACCINE 0.5 ML VIAL SQ ONE (16:00)
[2017-08-25] MEDS ORDERED: DIPHTH/TETANUS/ACEL PERTUSSIS (BOOSTER) 0.5 ML VIAL/PFS IM ONE (16:00)
[2017-08-25] MEDS ORDERED: KETOROLAC TROMETHAMINE 30 MG/ML (IVP) VIAL IV PUSH PRN (18:30)
[2017-08-25] MEDS ORDERED: LACTATED RINGER'S 1000 ML INJ 1,000 ML IV ONE (20:45)
--- NOTE | 2017-08-25 21:01 | HHI.PR ---
Subjective Remarks [facility] Attending Came to evaluate patient due to decreased urine output. Patient had 900 cc out at 2 AM, 300 cc at 6:10 AM, 200 cc at 8:10 AM, and 100 cc at 1620 p.m. The patient received 1 L bolus earlier today. The patient reports that she has not been drinking anything all day. I presented to the room to personally evaluate the patient. The patient appears well and is up ambulating in the room. We discussed the potential need for additional IV fluids as well as placement of a Painting catheter to adequately monitor her urine output. We discussed that we monitor urine output postoperatively is a sign of patient physiologic well- being. The patient reported that she would try to urinate and successfully voided 700 cc. She is now drinking by mouth fluids and reports that she will continue to do so. We'll monitor closely, check BMP and CBC in a.m. We'll continue to monitor urine output overnight. Objective Vital Signs Date Time Temp Pulse Resp B/P (MAP) Pulse Ox O2 Delivery O2 Flow Rate FiO2 08/25/17 19:40 100 9 117/76 (90) 08/25/17 19:40 98.6 08/25/17 17:10 120/68 (85) 08/25/17 16:07 116/58 (77) 08/25/17 15:56 98.1 102 18 121/54 (76) 08/25/17 13:44 72/29 (43) 08/25/17 13:40 100 116/47 (70) 08/25/17 13:10 94 20 106/40 (62) 08/25/17 13:10 97.9 08/25/17 13:00 72/29 (43) 08/25/17 13:00 72/29 (43) 08/25/17 09:29 105 122/60 (80) 08/25/17 08:20 85 08/25/17 08:20 105 124/52 (76) 08/25/17 08:20 89/36 (53) 08/25/17 08:15 85 89/36 (53) 08/25/17 08:10 98.1 102 18 86/60 (69) 08/25/17 04:10 98.6 102 18 140/68 (92) 99 08/24/17 23:52 98.7 08/24/17 23:52 88 18 144/80 (026) 17 Result Diagram: 08/25/17 1524 Vane Gomez MD Aug 25, 2017 21:01
[2017-08-26 00:30] VITALS: BP 117/60; PULSE 101; RESP 18; TEMP 98.6
[2017-08-26 03:39] VITALS: BP 118/57; PULSE 98; RESP 18; TEMP 98.7
[2017-08-26 06:02] LABS: HEMOGLOBIN 8.3 GM/DL (11.6-15.3); MEAN CELL VOLUME 88.5 FL (80.0-100.0); MEAN CORPUSCULAR HEMOGLOBIN 29.2 PG (27.0-34.0); MEAN PLATELET VOLUME 9.7 FL (7.0-11.0); PLATELET COUNT 176 TH/MM3 (150-450); RED BLOOD COUNT 2.83 MIL/MM3 (4.00-5.30); RED CELL DISTRIBUTION WIDTH 15.3 % (11.6-17.2); WHITE BLOOD COUNT 12.1 TH/MM3 (4.0-11.0)
[2017-08-26 06:36] LABS: BICARBONATE 23.9 MEQ/L (21.0-32.0); CALCIUM 8.4 MG/DL (8.5-10.1); CREATININE 0.48 MG/DL (0.50-1.00)
[2017-08-26 08:00] VITALS: BP 136/80; PULSE 122; RESP 18; TEMP 98.4; O2SAT 99
[2017-08-26] MEDS: IBUPROFEN 600 MG TAB PO PRN ×3 (09:11→21:33)
[2017-08-26] MEDS: oxyCODONE/ACETAMINOPHEN 5 MG/325 MG TAB PO PRN ×3 (09:11→21:33)
[2017-08-26] MEDS: FERROUS SULFATE 325 MG (65 MG ELEMENTAL IRON) TAB PO SCH ×2 (09:11→21:33)
--- NOTE | 2017-08-26 11:54 | HHI.OB ---
Subjective Post Operative Day: 2 Remarks Ms. Mcrae is a 22 yo who is POD 2 from CS 08/24 for inability to tolerate labor. Interval History: On VS assessment, patient found to be hypotensive to MAP 43 (BP 72/29) yesterday 08/25; patient was asymptomatic at that time after being awoken. Repeat Hgb obtained (9.4 08/25 at 1524) <- (9.7 that morning). Patient received several crystalloid boluses during the day. I&O reviewed with nursing staff and patient due to concern for oliguria vs undocumented urination; patient urinated only ~200 ml during the day but then urinated 700ml the evening of 08/25. Patient reports that she did well overnight without any dizziness, weakness, increase in abdominal pain, increase in vaginal bleeding, or other concerns. Patient ambulating normally. Patient voiding normally overnight. Patient has been passing gas normally but has not yet had a bowel movement. Patient plans to meet with oracle database consultant later today. Objective Vitals/I&O Vital Signs Date Time Temp Pulse Resp B/P (MAP) Pulse Ox O2 Delivery O2 Flow Rate FiO2 08/26/17 08:00 98.4 122 18 99 08/26/17 08:00 136/80 (98) 08/26/17 03:39 98.7 98 18 118/57 (77) 08/26/17 00:30 98.6 101 18 117/60 (79) 08/25/17 22:00 98.4 101 20 121/53 (75) 08/25/17 19:40 100 9 117/76 (90) 08/25/17 19:40 98.6 08/25/17 17:10 120/68 (85) 08/25/17 16:07 116/58 (77) 08/25/17 15:56 98.1 102 18 121/54 (76) 08/25/17 13:44 72/29 (43) 08/25/17 13:40 100 116/47 (70) 08/25/17 13:10 94 20 106/40 (62) 08/25/17 13:10 97.9 08/25/17 13:00 72/29 (43) 08/25/17 13:00 72/29 (43) Result Diagram: 08/26/178 08/26/17447 Objective Remarks GENERAL: Well-nourished, well-developed patient. CARDIOVASCULAR: Regular rate and rhythm without murmurs. Normal perfusion RESPIRATORY: CTAB; normal rate ABDOMEN/GI: Abdomen soft, non-tender, bowel sounds present. Incision: Left incision covered; no leakage associated with incision dressing. Fundus: Firm, non-tender at umbilicus. GENITOURINARY: Light to moderate bleeding. EXTREMITIES: No cyanosis or edema, non-tender, without signs of DVT. Medications and IVs Current Medications Medications (Trade) Dose Ordered Sig/Laila Route Start Time Stop Time Status Last Admin (NS Flush) 2 ml BID IV FLUSH 08/24/17 21:00 08/24/17 22:07 (NS Flush) 2 ml UNSCH PRN IV FLUSH 08/24/17 16:15 (Motrin) 600 mg Q6H PRN PO 08/24/17 16:15 08/26/17 09:11 (Percocet 5-325 Mg) 1 tab Q4H PRN PO 08/24/17 16:15 08/26/17 09:11 (Percocet 5-325 Mg) 2 tab Q4H PRN PO 08/24/17 16:15 (Anita-Colace) 2 tab Q12H PRN PO 08/24/17 16:15 08/25/17 08:32 (Ambien) 5 mg HS PRN PO 08/24/17 21:00 (Zofran Inj) 4 mg Q6H PRN IV PUSH 08/24/17 16:15 (Ferrous Sulfate) 325 mg BID PO 08/25/17 09:00 08/26/17 09:11 (Toradol Inj) 30 mg Q6HR PRN IV PUSH 08/25/17 18:30 08/30/17 18:29 Assessment/Plan Problem List: (1) care following delivery ICD Codes: Z39.2 - Encounter for routine follow-up Assessment and Plan Ms. Mcrae is a 22 yo who is POD 2 from CS 08/24 for inability to tolerate labor. -Continue post- care -Continue to monitor VS, vaginal bleeding -Encourage ambulation -Percocet/Motrin for pain control -Anita-colace for stool softening - guidance requested Anemia Impression: Hgb 13.3 on admission -> 9.7-> 9.4-> 8.3 (08/26). Normal vaginal bleeding . Do not suspect intraabdominal bleeding. -Continue ferrous sulfate supplementation BID to be continued for several months post- -Will repeat CBC tomorrow morning Hypotension Impression: Unclear etiology; recent BP's normotensive. Patient appears to be doing well without concerns. Post-op anemia (Hgb 8.3 today. Cr wnl 08/26. -Continue to monitor VS q4 hrs Román Gonzalez MD, R3 Aug 26, 2017 11:54
[2017-08-26 20:10] VITALS: BP 113/68; PULSE 95; RESP 20; TEMP 98; O2SAT 96
[2017-08-26] MEDS: SODIUM CHLORIDE 0.9% FLUSH 10 ML FLUSH IV FLUSH SCH (21:00)
[2017-08-26] MEDS: DOCUSATE SODIUM 50 MG/SENNA 8.6 MG TAB PO PRN (21:32)
[2017-08-27 06:18] LABS: AUTOMATED NEUTROPHIL # 7.8 TH/MM3 (1.8-7.7); BASOPHIL % 0.2 % (0.0-2.0); EOSINOPHIL # 0.1 TH/MM3 (0-0.4); EOSINOPHIL % 1.2 % (0.0-4.0); HEMATOCRIT 26.6 % (35.0-46.0); HEMOGLOBIN 8.7 GM/DL (11.6-15.3); LYMPH % 19.7 % (9.0-44.0); LYMPHOCYTE # 2.2 TH/MM3 (1.0-4.8); MEAN CELL VOLUME 88.7 FL (80.0-100.0); MEAN CORPUSCULAR HGB CONC 32.7 % (32.0-36.0); MEAN PLATELET VOLUME 8.9 FL (7.0-11.0); MONO % 7.1 % (0.0-8.0); MONOCYTE # 0.8 TH/MM3 (0-0.9); NEUT % 71.8 % (16.0-70.0); PLATELET COUNT 202 TH/MM3 (150-450); RED CELL DISTRIBUTION WIDTH 15.2 % (11.6-17.2); WHITE BLOOD COUNT 10.9 TH/MM3 (4.0-11.0)
[2017-08-27] MEDS: IBUPROFEN 600 MG TAB PO PRN (06:47)
[2017-08-27 08:00] VITALS: BP 135/79; PULSE 98; RESP 16; TEMP 98.5; O2SAT 98
[2017-08-27] MEDS: FERROUS SULFATE 325 MG (65 MG ELEMENTAL IRON) TAB PO SCH (08:30)
[2017-08-27] MEDS ORDERED: OXYC1TAB63 PO (08:50)
[2017-08-27] MEDS ORDERED: IBUP-232 PO (08:50)
[2017-08-27] MEDS ORDERED: PERI PO (08:52)
[2017-08-27] MEDS ORDERED: FERR325T20 PO (09:06)
--- NOTE | 2017-08-27 09:07 | HHI.OB ---
Subjective Post Operative Day: 3 Remarks Postoperative day number 3. AFVSS overnight. Pain well-controlled. Incision not draining. Decreased lochia. Denies dysuria. No breast tenderness. She is feeding the baby via breast and bottle. Appetite good. No nausea or vomiting. Endorses flatus. No bowel movement. Ambulating well. Denies calf pain, shortness of breath, or cough. Otherwise, she is doing well this morning and has no other complaints. Objective Vitals/I&O Vital Signs Date Time Temp Pulse Resp B/P (MAP) Pulse Ox O2 Delivery O2 Flow Rate FiO2 08/26/17 20:10 113/68 (83) 08/26/17 20:10 98.0 95 20 96 Result Diagram: 08/27/17 0545 08/26/17 0448 Objective Remarks GENERAL: Well-nourished, well-developed patient. CARDIOVASCULAR: Regular rate and rhythm without murmurs. Normal perfusion RESPIRATORY: CTAB; normal rate ABDOMEN/GI: Abdomen soft, non-tender, bowel sounds present. Incision: Left incision covered; no leakage associated with incision dressing. Fundus: Firm, non-tender at umbilicus. GENITOURINARY: Light to moderate bleeding. EXTREMITIES: No cyanosis or edema, non-tender, without signs of DVT. Medications and IVs Current Medications Medications (Trade) Dose Ordered Sig/Laila Route Start Time Stop Time Status Last Admin (NS Flush) 2 ml BID IV FLUSH 08/24/17 21:00 08/24/17 22:07 (NS Flush) 2 ml UNSCH PRN IV FLUSH 08/24/17 16:15 (Motrin) 600 mg Q6H PRN PO 08/24/17 16:15 08/27/17 06:47 (Percocet 5-325 Mg) 1 tab Q4H PRN PO 08/24/17 16:15 08/26/17 21:33 (Percocet 5-325 Mg) 2 tab Q4H PRN PO 08/24/17 16:15 08/27/17 06:47 (Anita-Colace) 2 tab Q12H PRN PO 08/24/17 16:15 08/26/17 21:32 (Ambien) 5 mg HS PRN PO 08/24/17 21:00 (Zofran Inj) 4 mg Q6H PRN IV PUSH 08/24/17 16:15 (Ferrous Sulfate) 325 mg BID PO 08/25/17 09:00 08/27/17 08:30 (Toradol Inj) 30 mg Q6HR PRN IV PUSH 08/25/17 18:30 08/30/17 18:29 Assessment/Plan Problem List: (1) care following delivery ICD Codes: Z39.2 - Encounter for routine follow-up Assessment and Plan Ms. Mcrae is a 22 yo who is POD 3 from CS 08/24 for inability to tolerate labor. -Continue post- care -Continue to monitor VS, vaginal bleeding -Encourage ambulation -Percocet/Motrin for pain control -Anita-colace for stool softening - guidance requested -D/c home today Anemia Impression: Hgb 13.3 on admission -> 9.7-> 9.4-> 8.3 --> 8.7. Normal vaginal bleeding . Do not suspect intraabdominal bleeding. -Continue ferrous sulfate supplementation BID to be continued for several months post- Navid Tate MD Aug 27, 2017 09:07
--- NOTE | 2017-08-27 09:47 | HHI.DCPOC ---
Discharge Care Plan Diagnosis: (1) care following delivery Report Symptoms to Your Doctor -Temperature above 100.5 degrees -Redness, of incision or excessive or foul smelling drainage -Unusual pain or calf pain -Increased vaginal bleeding -Painful or difficulty urinating -Feelings of extreme sadness or anxiety after 2 weeks Goals to Promote Your Health * To prevent worsening of your condition and complications * To maintain your health at the optimal level Directions to Meet Your Goals Take your medications as prescribed Follow your dietary instruction Follow activity as directed Ensure plenty of rest for recovery Drink fluids for hydration Keep your appointments as scheduled Take your immunizations and boosters as scheduled If your symptoms worsen call your PCP, if no PCP go to Urgent Care Center or Emergency Room Smoking is Dangerous to Your Health. Avoid second hand smoke Call the 24-hour crisis hotline for domestic abuse at Navid Tate MD Aug 27, 2017 09:47
== END 2017-08-27 13:20 | disposition home or self-care (01) | DRG 765 ==
LOC: H2EB 21:26 → H1EA 08-24 17:22
PROVIDERS: ADMIT Obstetrics & Gynecology Obstetrics; ATTEND Obstetrics & Gynecology Obstetrics
PROC: 10D00Z1 Extraction of Products of Conception, Low, Open Approach (ICD-10-PCS; principal; 2017-08-23)
PROC: 3E0P7VZ Introduction of Hormone into Female Reproductive, Via Natural or Artificial Opening (ICD-10-PCS; 2017-08-23)
DX: O48.0 Post-term pregnancy (principal); O40.3XX0 Polyhydramnios, third trimester, not applicable or unspecified; I95.9 Hypotension, unspecified; D64.9 Anemia, unspecified; O99.824 Streptococcus B carrier state complicating childbirth; O90.81 Anemia of the puerperium; O61.0 Failed medical induction of labor; O76 Abnormality in fetal heart rate and rhythm complicating labor and delivery; O36.63X0 Maternal care for excessive fetal growth, third trimester, not applicable or unspecified; Z3A.40 40 weeks gestation of pregnancy; Z37.0 Single live birth
CPT/HCPCS: 59025; 76815; 80048; 80307; 81001; 85014; 85018; 85025; 85027; 86900; 86901; 90715; J0690; J1100; J1200; J2274; J2370; J2405; J2590; J3105; J7030; J7120